=== PATIENT | male | born 1975 | race Caucasian/White ===

== ENCOUNTER 2023-10-01 16:08 | Emergency (ER) | payer BC, SELFPAY ==
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
[2023-10-01 16:52] VITALS: BP 146/88; PULSE 64; RESP 18; TEMP 36.6; O2SAT 97; BMI 44.1
[2023-10-01 17:48] VITALS: RESP 17; O2SAT 97
[2023-10-01] MEDS: HYDROmorphone 1 mg/mL INJ 1 mL IVP (17:48)
[2023-10-01] MEDS: ondansetron 2 mg/ML SDV 2 mL 4 MG IVP (20:22)
== END 2023-10-01 21:41 | disposition home or self-care (01) ==
PROVIDERS: Emergency Provider Physician Assistant
DX: S82.865A Nondisplaced Maisonneuve's fracture of left leg, initial encounter for closed fracture (principal); S82.842A Displaced bimalleolar fracture of left lower leg, initial encounter for closed fracture; V22.49XA Other motorcycle driver injured in collision with two- or three-wheeled motor vehicle in traffic accident, initial encounter
CPT/HCPCS: 29505; 73590; 73610; 73630; 96374; 96375; 99284; E0114; J1170; J2405